=== PATIENT | female | born 1935 | race Caucasian/White ===

== ENCOUNTER → 2016-11-16 | Outpatient (CLI) | payer MEDICARE, BC | END | disposition disaster alternative care site (69) | LOC: GAMB 18:35 | DX: R53.1 Weakness (principal); M79.89 Other specified soft tissue disorders; R11.0 Nausea; R25.2 Cramp and spasm | CPT/HCPCS: A0425; A0429 ==

== ENCOUNTER → 2017-01-10 | Outpatient (CLI) | payer MEDICARE, BC | LOC: LGSMG 10:33 | DX: I12.9 Hypertensive chronic kidney disease with stage 1 through stage 4 chronic kidney disease, or unspecified chronic kidney disease (principal); N18.3 Chronic kidney disease, stage 3 (moderate); D64.9 Anemia, unspecified; R60.9 Edema, unspecified ==